=== PATIENT | female | born 1970 | race Caucasian/White ===

== ENCOUNTER → 2016-10-26 | Outpatient (CLI) | payer BC ==
--- NOTE | 2016-11-01 08:44 | MM ---
Reason for exam: screening (asymptomatic). Last mammogram was performed 2 years ago. History: Benign excisional biopsy of both breasts. Physical Findings: A clinical breast exam by your physician is recommended on an annual basis and results should be correlated with mammographic findings. MG Screening Mammo w CAD Bilateral CC and MLO view(s) were taken. Prior study comparison: October 28, 2014, mammogram, performed at [place]. October 16, 2014, mammogram, performed at [place]. The breast tissue is heterogeneously dense. This may lower the sensitivity of mammography. Previous mammotome biopsy in the right breast. Developing asymmetry right posterior depth. ASSESSMENT: Incomplete: need additional imaging evaluation, BI-RAD 0 RECOMMENDATION: Special view mammogram of the right breast. If lesion persists on supplemental views, image directed ultrasound is recommended. [facility] will attempt to contact patient to return for supplemental views and ultrasound if indicated.
== END | disposition home or self-care (01) ==
LOC: RADMAMWWP 07:53
PROVIDERS: ATTEND Family Medicine
DX: Z12.31 Encounter for screening mammogram for malignant neoplasm of breast (principal)

== ENCOUNTER → 2016-11-27 | Outpatient (CLI) | payer BC ==
--- NOTE | 2016-11-27 09:33 | MM ---
Reason for exam: additional evaluation requested from abnormal screening. Last mammogram was performed 1 month ago. History: Ultrasound-guided core biopsy, February 02, 2015. Benign excisional biopsy of both breasts. Physical Findings: Nurse did not find any significant physical abnormalities on exam. MG Work Up Mamm w CAD RT ML and spot compression CC view(s) were taken of the right breast. Prior study comparison: October 26, 2016, bilateral MG screening mammo w CAD. December 25, 2014, ultrasound, performed at [facility]. October 28, 2014, mammogram, performed at [place]. There are scattered fibroglandular densities. Three areas of nodularity posterior right breast became less defined on spot view but still persists. Ultrasound is recommended. These results were verbally communicated with the patient and result sheet given to the patient on 11/27/16. ASSESSMENT: Incomplete: need additional imaging evaluation, BI-RAD 0 RECOMMENDATION: Ultrasound of the right breast.
--- NOTE | 2016-11-27 09:41 | USB ---
Reason for exam: additional evaluation requested from abnormal screening. History: Ultrasound-guided core biopsy, February 02, 2015. Benign excisional biopsy of both breasts. US Breast Workup RT Right breast ultrasound includes all four quadrants, the retroareolar region and axilla. Finding demonstrate a 0.6 x 0.6 x 0.3cm oval, mixed possible cyst cluster at 3 o'clock for which a 6 month follow up is recommended, and a 0.7 x 0.9 x 0.3cm oval, cystic lesion at 7 o'clock, benign. These results were verbally communicated with the patient and result sheet given to the patient on 11/27/16. ASSESSMENT: Probably benign, BI-RAD 3 RECOMMENDATION: Follow-up diagnostic mammogram and ultrasound of the right breast in 6 months.
== END | disposition home or self-care (01) ==
LOC: RADMAMWWP 07:46
PROVIDERS: ATTEND Family Medicine
DX: Z12.31 Encounter for screening mammogram for malignant neoplasm of breast (principal); R92.8 Other abnormal and inconclusive findings on diagnostic imaging of breast; R92.2 Inconclusive mammogram
CPT/HCPCS: 76641; G0206

== ENCOUNTER → 2018-01-07 | Outpatient (CLI) | payer BC ==
--- NOTE | 2018-01-08 11:08 | MM ---
Reason for exam: screening (asymptomatic). Last mammogram was performed 1 year and 1 month ago. History: Ultrasound-guided core biopsy, February 02, 2015. Benign excisional biopsy of both breasts. Physical Findings: A clinical breast exam by your physician is recommended on an annual basis and results should be correlated with mammographic findings. MG Screening Mammo w CAD Bilateral CC and MLO view(s) were taken. Prior study comparison: November 27, 2016, right breast MG work up mamm w CAD RT. October 26, 2016, bilateral MG screening mammo w CAD. October 28, 2014, mammogram, performed at [place]. October 16, 2014, mammogram, performed at [place]. The breast tissue is heterogeneously dense. This may lower the sensitivity of mammography. Finding: There is a 10 mm obscured oval mass in the posterior middle position of the left breast. Previous mammotome biopsy in the right breast. There is a chronic nodularity in the right breast, posterior aspect. 8-9mm right outer lower quadrant nodule, increased in size. New finding since November 27, 2016, October 26, 2016, October 28, 2014, and October 16, 2014. ASSESSMENT: Incomplete: need additional imaging evaluation, BI-RAD 0 RECOMMENDATION: Special view mammogram of the left breast. Ultrasound of both breasts. [facility] will attempt to contact patient to return for supplemental views and ultrasound.
== END | disposition home or self-care (01) ==
LOC: RADMAMWWP 06:57
PROVIDERS: ATTEND Family Medicine
DX: Z12.31 Encounter for screening mammogram for malignant neoplasm of breast (principal)
CPT/HCPCS: 77067

== ENCOUNTER → 2018-01-23 | Outpatient (CLI) | payer BC ==
--- NOTE | 2018-01-23 08:41 | MM ---
Reason for exam: additional evaluation requested from abnormal screening. Last mammogram was performed 1 month ago. History: Ultrasound-guided core biopsy, February 02, 2015. Benign excisional biopsy of both breasts. Took hormonal contraceptives beginning at age 19. Physical Findings: Nurse did not find any significant physical abnormalities on exam. MG Work Up Mamm w CAD LT Spot compression CC, spot compression MLO, and ML view(s) were taken of the left breast. Prior study comparison: January 07, 2018, bilateral MG screening mammo w CAD. November 27, 2016, right breast MG work up mamm w CAD RT. The breast tissue is heterogeneously dense. This may lower the sensitivity of mammography. 9-10 o'clock ovoid circumscribed nodule persists. These results were verbally communicated with the patient and result sheet given to the patient on 01/23/18. ASSESSMENT: Incomplete: need additional imaging evaluation, BI-RAD 0 RECOMMENDATION: Ultrasound of both breasts.
--- NOTE | 2018-01-23 08:44 | USB ---
Reason for exam: additional evaluation requested from abnormal screening. History: Ultrasound-guided core biopsy, February 02, 2015. Benign excisional biopsy of both breasts. Took hormonal contraceptives beginning at age 19. US Breast Workup Limited [place] Right limited breast ultrasound including focal area of concern, retroareolar and axilla demonstrates a 0.5 x 0.4 x 0.9cm cystic cluster at 7 o'clock, corresponds well to the new mammographic finding and duct ectasia at the posterior nipple. Left limited breast ultrasound including focal area of concern, retroareolar and axilla demonstrates a 0.6 x 0.4 x 0.7cm mixed lesion at 10 o'clock, possible cyst cluster, also corresponds well to the mammographic finding and duct ectasia at the posterior nipple. As the finding on the right is new and on the left is enlarging, 6 month follow up recommended. These results were verbally communicated with the patient and result sheet given to the patient on 01/23/18. ASSESSMENT: Probably benign, BI-RAD 3 RECOMMENDATION: Follow-up diagnostic mammogram of both breasts in 6 months.
== END | disposition home or self-care (01) ==
LOC: RADMAMWWP 06:57
PROVIDERS: ATTEND Family Medicine
DX: R92.8 Other abnormal and inconclusive findings on diagnostic imaging of breast (principal)
CPT/HCPCS: 77065

== ENCOUNTER → 2018-07-29 | Outpatient (CLI) | payer BC ==
--- NOTE | 2018-07-29 08:01 | MM ---
Reason for exam: follow-up at short interval from prior study. Last mammogram was performed 6 months ago. History: Ultrasound-guided core biopsy, February 02, 2015. Benign excisional biopsy of both breasts. Took hormonal contraceptives beginning at age 19. Physical Findings: Nurse did not find any significant physical abnormalities on exam. MG Diagnostic Mammo w CAD [place] Bilateral CC and MLO view(s) were taken. Prior study comparison: January 23, 2018, left breast MG work up mamm w CAD LT. January 07, 2018, bilateral MG screening mammo w CAD. October 26, 2016, bilateral MG screening mammo w CAD. October 16, 2014, mammogram, performed at [place]. There is chronic nodularity in the right breast. There is no discrete abnormality. These results were verbally communicated with the patient and result sheet given to the patient on 07/29/18. ASSESSMENT: Benign, BI-RAD 2 RECOMMENDATION: Return to routine screening mammogram schedule for both breasts.
== END ==
LOC: RADMAMWWP 07:01
PROVIDERS: ATTEND Family Medicine
DX: R92.8 Other abnormal and inconclusive findings on diagnostic imaging of breast (principal)
CPT/HCPCS: 77066

== ENCOUNTER → 2019-05-15 | Outpatient (CLI) | payer BC ==
--- NOTE | 2019-05-16 14:31 | MM ---
Reason for exam: screening (asymptomatic). Last mammogram was performed 9 months ago. History: Ultrasound-guided core biopsy, February 02, 2015. Benign excisional biopsy of both breasts. Took hormonal contraceptives beginning at age 19. Physical Findings: A clinical breast exam by your physician is recommended on an annual basis and results should be correlated with mammographic findings. MG 3D Screening Mammo W/Cad Bilateral CC and MLO view(s) were taken. Prior study comparison: July 29, 2018, bilateral MG diagnostic mammo w CAD [place]. January 23, 2018, left breast MG work up mamm w CAD LT. The breast tissue is heterogeneously dense. This may lower the sensitivity of mammography. There is chronic nodularity bilaterally. There is no dominant lesion. No significant changes when compared with prior studies. ASSESSMENT: Benign, BI-RAD 2 RECOMMENDATION: Routine screening mammogram of both breasts in 1 year.
== END | disposition home or self-care (01) ==
LOC: RADMAMWWP 14:25
PROVIDERS: ATTEND Nurse Practitioner
DX: Z12.31 Encounter for screening mammogram for malignant neoplasm of breast (principal)
CPT/HCPCS: 77063; 77067

== ENCOUNTER → 2020-08-23 | Outpatient (CLI) | payer BC ==
--- NOTE | 2020-08-24 10:45 | MM ---
Reason for exam: screening (asymptomatic). Last mammogram was performed 1 year and 3 months ago. History: Ultrasound-guided core biopsy, February 02, 2015. Benign excisional biopsy of both breasts. Took hormonal contraceptives beginning at age 19. Physical Findings: A clinical breast exam by your physician is recommended on an annual basis and results should be correlated with mammographic findings. MG 3D Screening Mammo W/Cad Bilateral CC and MLO view(s) were taken. Prior study comparison: May 15, 2019, bilateral MG 3d screening mammo w/cad. July 29, 2018, bilateral MG diagnostic mammo w CAD [place]. The breast tissue is heterogeneously dense. This may lower the sensitivity of mammography. Focal asymmetry right breast zone A. This finding is changed when compared with previous exams. ASSESSMENT: Incomplete: need additional imaging evaluation, BI-RAD 0 RECOMMENDATION: Special view mammogram of the right breast. If lesion persists on supplemental views, image directed ultrasound is recommended. [facility] will attempt to contact patient to return for supplemental views and ultrasound if indicated.
== END | disposition home or self-care (01) ==
LOC: RADMAMWWP 07:44
PROVIDERS: ATTEND Family Medicine
DX: Z12.31 Encounter for screening mammogram for malignant neoplasm of breast (principal)
CPT/HCPCS: 77063; 77067

== ENCOUNTER → 2020-08-25 | Outpatient (CLI) | payer BC ==
--- NOTE | 2020-08-25 11:39 | MM ---
Reason for exam: additional evaluation requested from abnormal screening. Last mammogram was performed less than 1 month ago. History: Ultrasound-guided core biopsy, February 02, 2015. Benign excisional biopsy of both breasts. Took hormonal contraceptives beginning at age 19. Physical Findings: Nurse did not find any significant physical abnormalities on exam. MG 3D Work Up W/Cad RT Spot compression CC, spot compression MLO, and ML view(s) were taken of the right breast. Prior study comparison: August 23, 2020, bilateral MG 3d screening mammo w/cad. May 15, 2019, bilateral MG 3d screening mammo w/cad. There is no discrete abnormality including area of concern. These results were verbally communicated with the patient and result sheet given to the patient on 08/25/20. ASSESSMENT: Probably benign, BI-RAD 3 RECOMMENDATION: Follow-up diagnostic mammogram of the right breast in 6 months.
== END | disposition home or self-care (01) ==
LOC: RADMAMWWP 07:42
PROVIDERS: ATTEND Family Medicine
DX: R92.8 Other abnormal and inconclusive findings on diagnostic imaging of breast (principal)
CPT/HCPCS: 77061; 77065

== ENCOUNTER → 2021-03-24 | Outpatient (CLI) | payer BC ==
--- NOTE | 2021-03-25 11:11 | MM ---
Reason for exam: follow-up at short interval from prior study. Last mammogram was performed 7 months ago. History: Patient is postmenopausal. Ultrasound-guided core biopsy, February 02, 2015. Benign excisional biopsy of both breasts. Took hormonal contraceptives for 6 years beginning at age 19. Physical Findings: Nurse did not find any significant physical abnormalities on exam. MG 3D Diag Mammo W/Cad RT CC and MLO view(s) were taken of the right breast. Prior study comparison: August 25, 2020, right breast MG 3d work up w/cad RT. August 23, 2020, bilateral MG 3d screening mammo w/cad. There are scattered fibroglandular densities. There is chronic nodularity in the right breast posteriorly. The previous anterior density has resolved. No significant new findings when compared with previous films. These results were verbally communicated with the patient and result sheet given to the patient on 03/24/21. ASSESSMENT: Benign, BI-RAD 2 RECOMMENDATION: Return to routine screening mammogram schedule for both breasts. Back on schedule.
== END | disposition home or self-care (01) ==
LOC: RADMAMWWP 14:39
PROVIDERS: ATTEND Family Medicine
DX: R92.8 Other abnormal and inconclusive findings on diagnostic imaging of breast (principal); N64.89 Other specified disorders of breast; Z78.0 Asymptomatic menopausal state
CPT/HCPCS: 77061; 77065

== ENCOUNTER → 2021-11-09 | Outpatient (CLI) | payer BC ==
--- NOTE | 2021-11-10 17:37 | MM ---
Reason for Exam: Screening (asymptomatic). Last mammogram was performed 1 year(s) and 2 month(s) ago. Patient History: Menarche at age 13. First Full-Term at age 26. Postmenopausal. Hormonal Contraceptives for 6 years from age 19 until age 25. 02/02/2015, Ultrasound-Guided Core Biopsy. Bilateral Benign Excisional Biopsy. Risk Values: Neida 5 year model risk: 1.7%. NCI Lifetime model risk: 14.3%. Prior Study Comparison: 08/23/2020 Bilateral Screening Mammogram, [facility]. 08/25/2020 Right Diagnostic Mammogram, [facility]. 03/24/2021 Right Diagnostic Mammogram, [facility]. Tissue Density: There are scattered fibroglandular densities. Findings: Analyzed By CAD. There is a rounded density with partially obscured margins in the upper outer mid left breast measuring 1.1 cm x 6 cm the nipple. This is increasing in size from comparison studies. Ultrasound is recommended for additional evaluation. Chronic nodularities within the left breast. No suspicious groups of microcalcifications, spiculated or lobular masses, architectural distortion or other secondary signs of malignancy are mammographically apparent. Overall Assessment: Incomplete: need additional imaging evaluation, BI-RAD 0 Management: Diagnostic Breast Ultrasound of the left breast. A negative mammogram report should not preclude additional follow up of suspicious palpable abnormalities. Patient should continue monthly self breast exam. A clinical breast exam by your physician is recommended on an annual basis and results should be correlated with mammographic findings. Electronically signed and approved by: Silverio Pollard D.O. Radiologis
== END | disposition home or self-care (01) ==
LOC: RADMAMWWP 16:29
PROVIDERS: ATTEND Family Medicine
DX: Z12.31 Encounter for screening mammogram for malignant neoplasm of breast (principal); Z78.0 Asymptomatic menopausal state
CPT/HCPCS: 77063; 77067

== ENCOUNTER → 2021-11-23 | Outpatient (CLI) | payer BC ==
--- NOTE | 2021-11-23 15:22 | USB ---
Reason for Exam: Additional evaluation requested from prior study. Patient History: Menarche at age 13. First Full-Term at age 26. Postmenopausal. Hormonal Contraceptives for 6 years from age 19 until age 25. 02/02/2015, Ultrasound-Guided Core Biopsy. Bilateral Benign Excisional Biopsy. Risk Values: Neida 5 year model risk: 1.7%. NCI Lifetime model risk: 14.3%. Prior Study Comparison: 08/25/2020 Right Diagnostic Mammogram, [facility]. 03/24/2021 Right Diagnostic Mammogram, [facility]. 11/09/2021 Bilateral MG 3D screening mammo w/cad, [facility]. Findings: Lesion 1:00 position likely corresponds to the mammogram abnormality left breast favoring benign thin-walled cyst. Due to slightly lobulated contour and not greatly increased through transmission, short-term follow-up advised. Overall Assessment: Probably benign, BI-RAD 3 Management: Diagnostic Breast Ultrasound of the left breast in 6 months. A clinical breast exam by your physician is recommended on an annual basis and results should be correlated with mammographic findings. Electronically signed and approved by: Julius Sandoval M.D.
== END | disposition home or self-care (01) ==
LOC: RADUSWWP 14:42
PROVIDERS: ATTEND Family Medicine
DX: R92.8 Other abnormal and inconclusive findings on diagnostic imaging of breast (principal); Z78.0 Asymptomatic menopausal state

== ENCOUNTER → 2022-06-19 | Outpatient (CLI) | payer BC ==
--- NOTE | 2022-06-19 11:11 | MM ---
Reason for Exam: Follow-up at short interval from prior study. Last screening mammogram was performed 7 month(s) ago. Patient History: Menarche at age 13. First Full-Term at age 26. Postmenopausal. Hormonal Contraceptives for 6 years from age 19 until age 25. 02/02/2015, Ultrasound-Guided Core Biopsy. Bilateral Benign Excisional Biopsy. Risk Values: Neida 5 year model risk: 1.8%. NCI Lifetime model risk: 14.0%. Prior Study Comparison: 08/25/2020 Right Diagnostic Mammogram, [facility]. 03/24/2021 Right Diagnostic Mammogram, [facility]. 11/09/2021 Bilateral MG 3D screening mammo w/cad, [facility]. Tissue Density: Left: There are scattered fibroglandular densities. Findings: Analyzed By CAD. Marginal increase in size and rounded density with circumscribed margins within the upper outer quadrant of the left breast measuring up to 1.3 cm. Previously 1.1 cm. No new suspicious masses within the left breast. No suspicious microcalcifications within the left breast. Overall Assessment: Incomplete: need additional imaging evaluation, BI-RAD 0 Management: Diagnostic Breast Ultrasound of the left breast. A clinical breast exam by your physician is recommended on an annual basis and results should be correlated with mammographic findings. This exam should not preclude additional follow-up of suspicious palpable abnormalities. Results were given to the patient verbally at the time of exam. Electronically signed and approved by: Guru Wade D.O.
--- NOTE | 2022-06-19 11:31 | USB ---
Reason for Exam: Follow-up at short interval from prior study. Patient History: Menarche at age 13. First Full-Term at age 26. Postmenopausal. Hormonal Contraceptives for 6 years from age 19 until age 25. 02/02/2015, Ultrasound-Guided Core Biopsy. Bilateral Benign Excisional Biopsy. Risk Values: Neida 5 year model risk: 1.8%. NCI Lifetime model risk: 14.0%. Technique: Method: Targeted. Prior Study Comparison: 08/25/2020 Right Diagnostic Mammogram, [facility]. 03/24/2021 Right Diagnostic Mammogram, [facility]. 11/09/2021 Bilateral MG 3D screening mammo w/cad, [facility]. 11/23/2021 Left US breast workup limited , [facility]. Findings: The axilla of the left breast and the retroareolar of the left breast were scanned. Targeted ultrasound of the left breast at 12-2 o'clock was performed with additional evaluation the nipple and axilla. Increased size of anechoic lesion within the left breast 1:00 5 cm from the nipple measuring 1.2 x 0.7 x 1.0 cm without internal color flow. This demonstrates thin ramirez with some increased through transmission. No septations or nodularity identified. This is most consistent with a simple cyst. Overall Assessment: Benign, BI-RAD 2 Management: Screening Mammogram of both breasts in 6 months. A clinical breast exam by your physician is recommended on an annual basis and results should be correlated with mammographic findings. This exam should not preclude additional follow-up of suspicious palpable abnormalities. Results were given to the patient verbally at the time of exam. Electronically signed and approved by: Guru Wade D.O.
== END | disposition home or self-care (01) ==
LOC: RADMAMWWP 10:49
PROVIDERS: ATTEND Family Medicine
DX: R92.8 Other abnormal and inconclusive findings on diagnostic imaging of breast (principal); Z78.0 Asymptomatic menopausal state
CPT/HCPCS: 77061; 77065

== ENCOUNTER → 2023-07-26 | Outpatient (CLI) | payer BC ==
--- NOTE | 2023-07-27 08:56 | MM ---
Reason for Exam: Follow-up at short interval from prior study. Last mammogram was performed 1 year(s) and 9 month(s) ago. Patient History: Menarche at age 13. First Full-Term at age 26. Postmenopausal. Hormonal Contraceptives for 6 years from age 19 until age 25. 02/02/2015, Ultrasound-Guided Core Biopsy. Bilateral Benign Excisional Biopsy. Risk Values: Neida 5 year model risk: 1.8%. NCI Lifetime model risk: 13.8%. Prior Study Comparison: 07/29/2018 Bilateral Diagnostic Mammogram, [facility]. 08/23/2020 Bilateral Screening Mammogram, [facility]. 08/25/2020 Right Diagnostic Mammogram, [facility]. 11/09/2021 Bilateral MG 3D screening mammo w/cad, [facility]. 06/19/2022 Left MG 3D diag mammo w/cad LT, [facility]. Tissue Density: The breasts are heterogeneously dense, which may obscure small masses. Findings: Analyzed By CAD. Nodular density left breast persists although is somewhat smaller in size and measures 5 mm versus 12 mm. No additional masses seen. No suspicious calcifications evident. Overall Assessment: Benign, BI-RAD 2 Management: Screening Mammogram of both breasts in 1 year. . Results were given to the patient verbally at the time of exam. Patient should continue monthly self-breast exams. A clinical breast exam by your physician is recommended on an annual basis. This exam should not preclude additional follow-up of suspicious palpable abnormalities. Note on Neida scores and lifetime risk: 1. A Neida score greater than 3% is considered moderate risk. If this is the case, consider specialist referral to assess eligibility for a risk reducing agent. 2. If overall lifetime risk for the development of breast cancer is 20% or higher, the patient may qualify for future screening with alternating mammogram and breast MRI. Electronically signed and approved by: Wilder Pak M.D. Radiologis
== END | disposition home or self-care (01) ==
LOC: RADMAMWWP 13:18
PROVIDERS: ATTEND Obstetrics & Gynecology
DX: R92.333 Mammographic heterogeneous density, bilateral breasts (principal); Z78.0 Asymptomatic menopausal state
CPT/HCPCS: 77062; 77066

== ENCOUNTER → 2024-08-29 | Outpatient (CLI) | payer BC ==
--- NOTE | 2024-08-29 08:37 | MM ---
Reason for Exam: Screening (asymptomatic). Last mammogram was performed 1 year(s) and 1 month(s) ago. Patient History: Menarche at age 13. First Full-Term at age 26. Postmenopausal. Hormonal Contraceptives for 6 years from age 19 until age 25. 02/02/2015, Ultrasound-Guided Core Biopsy. Bilateral Benign Excisional Biopsy. Risk Values: Neida 5 year model risk: 1.9%. NCI Lifetime model risk: 13.6%. Prior Study Comparison: 11/09/2021 Bilateral MG 3D screening mammo w/cad, [facility]. 06/19/2022 Left MG 3D diag mammo w/cad LT, [facility]. 07/26/2023 Bilateral MG 3D diag mammo w/cad [place], [facility]. Tissue Density: There are scattered areas of fibroglandular density. Findings: Analyzed By CAD. No axillary tail lymph node redemonstrated on the right. Microclip lower inner quadrant right breast from prior biopsy. A mole is again noted medially on the left. There is no suspicious group of microcalcifications or new suspicious mass in either breast. Overall Assessment: Benign, BI-RAD 2 Management: Screening Mammogram of both breasts in 1 year. Patient should continue monthly self-breast exams. A clinical breast exam by your physician is recommended on an annual basis. This exam should not preclude additional follow-up of suspicious palpable abnormalities. Note on Neida scores and lifetime risk: 1. A Neida score greater than 3% is considered moderate risk. If this is the case, consider specialist referral to assess eligibility for a risk reducing agent. 2. If overall lifetime risk for the development of breast cancer is 20% or higher, the patient may qualify for future screening with alternating mammogram and breast MRI. [facility], , 08/29/2024 8:33 AM. Electronically signed and approved by: Eugenio Moon M.D. Radiologist
== END | disposition home or self-care (01) ==
LOC: RADMAMWWP 07:56
PROVIDERS: ATTEND Family Medicine
DX: Z12.31 Encounter for screening mammogram for malignant neoplasm of breast (principal); R92.323 Mammographic fibroglandular density, bilateral breasts; Z78.0 Asymptomatic menopausal state; Z92.0 Personal history of contraception
CPT/HCPCS: 77063; 77067